=== PATIENT | male | born 1945 | race Two or more races ===

== ENCOUNTER 2019-04-27 11:34 | Outpatient (CLI) | payer OTHER ==
[~2019-04-27 11:34] MED LIST: ASA81 MG; ATACAND32 MG; JANUMET 50-5001 EACH; LIPITOR20 MG; NORVASC5 MG; TOPROL XL50 M1
== END 2019-04-27 11:43 | disposition home or self-care (01) ==
LOC: LAB 11:34
DX: E03.8 Other specified hypothyroidism (principal); D64.89 Other specified anemias; I10 Essential (primary) hypertension; E78.49 Other hyperlipidemia; R10.84 Generalized abdominal pain; Z79.01 Long term (current) use of anticoagulants; C18.9 Malignant neoplasm of colon, unspecified; D12.2 Benign neoplasm of ascending colon; E11.9 Type 2 diabetes mellitus without complications; I25.728 Atherosclerosis of autologous artery coronary artery bypass graft(s) with other forms of angina pectoris; Z82.49 Family history of ischemic heart disease and other diseases of the circulatory system; R19.5 Other fecal abnormalities

== ENCOUNTER 2019-05-03 10:08 | Outpatient (CLI) | payer OTHER | END 2019-05-03 14:34 | disposition home or self-care (01) | LOC: TOM 10:08 | DX: C18.9 Malignant neoplasm of colon, unspecified (principal) | CPT/HCPCS: 74177; Q9965 ==

== ENCOUNTER 2019-05-09 08:26 | Outpatient (CLI) | payer OTHER | END 2019-05-09 08:32 | disposition home or self-care (01) | LOC: NUCLEAR 08:26 | DX: I11.9 Hypertensive heart disease without heart failure (principal); I25.10 Atherosclerotic heart disease of native coronary artery without angina pectoris; I73.9 Peripheral vascular disease, unspecified; I87.2 Venous insufficiency (chronic) (peripheral) ==

== ENCOUNTER 2019-05-10 09:37 | Outpatient (CLI) | payer OTHER | END 2019-05-10 09:47 | disposition home or self-care (01) | LOC: NUCLEAR 09:37 | DX: I73.9 Peripheral vascular disease, unspecified (principal); I87.2 Venous insufficiency (chronic) (peripheral) ==

== ENCOUNTER 2019-05-22 12:24 | Inpatient (IN) | payer OTHER ==
[~2019-05-22] VITALS: Ht 177.8 cm; Wt 90.7 kg
[2019-06-19] MEDS ORDERED: INTESTINEX680 M1 PO (13:34)
[2019-06-19] MEDS ORDERED: OXYC1TAB9 PO (13:34)
== END 2019-06-19 13:56 | disposition home or self-care (01) | DRG 331 ==
LOC: SURG 06-07 09:15 → O/R 06-15 08:00 → SURH 06-15 08:00 → SURG 06-15 09:15 → SURH 06-15 13:12
PROVIDERS: ADMIT Surgery
PROC: 07TD4ZZ Resection of Aortic Lymphatic, Percutaneous Endoscopic Approach (ICD-10-PCS; 2019-06-15)
PROC: 4A12X4Z Monitoring of Cardiac Electrical Activity, External Approach (ICD-10-PCS; 2019-06-15)
PROC: 0DTF4ZZ Resection of Right Large Intestine, Percutaneous Endoscopic Approach (ICD-10-PCS; principal; 2019-06-15 12:00)
DX: D12.2 Benign neoplasm of ascending colon (principal); D12.3 Benign neoplasm of transverse colon; D12.5 Benign neoplasm of sigmoid colon; D37.4 Neoplasm of uncertain behavior of colon; K63.89 Other specified diseases of intestine; R59.0 Localized enlarged lymph nodes; E78.00 Pure hypercholesterolemia, unspecified; E11.9 Type 2 diabetes mellitus without complications; Z79.4 Long term (current) use of insulin; I11.9 Hypertensive heart disease without heart failure; I25.10 Atherosclerotic heart disease of native coronary artery without angina pectoris; F17.290 Nicotine dependence, other tobacco product, uncomplicated

== ENCOUNTER 2019-06-06 11:20 | Outpatient (CLI) | payer OTHER | END 2019-06-06 15:00 | disposition home or self-care (01) | LOC: LAB 11:20 | DX: D37.4 Neoplasm of uncertain behavior of colon (principal); D12.2 Benign neoplasm of ascending colon; D12.3 Benign neoplasm of transverse colon; D12.5 Benign neoplasm of sigmoid colon ==

== ENCOUNTER 2019-06-13 07:10 | Day surgery (SDC) | payer OTHER | END 2019-06-13 13:24 | disposition home or self-care (01) | LOC: AMB-ENDOS 07:10 | DX: D12.5 Benign neoplasm of sigmoid colon (principal) ==

== ENCOUNTER 2020-07-09 10:29 | Day surgery (SDC) | payer OTHER ==
[~2020-07-09 10:29] MED LIST changes: +INTESTINEX680 M1 PO; +OXYC1TAB9 PO
== END 2020-07-09 16:35 | disposition home or self-care (01) ==
LOC: AMB-ENDOS 10:29
PROVIDERS: ATTEND Surgery
DX: D12.8 Benign neoplasm of rectum (principal); K64.8 Other hemorrhoids; Z20.828 Contact with and (suspected) exposure to other viral communicable diseases

== ENCOUNTER 2020-07-18 13:49 | Outpatient (CLI) | payer OTHER | END 2020-07-18 14:03 | disposition home or self-care (01) | LOC: RAD 13:49 | PROVIDERS: ATTEND Physical Medicine & Rehabilitation | DX: M19.041 Primary osteoarthritis, right hand (principal) ==

== ENCOUNTER 2020-07-25 09:33 | Outpatient (CLI) | payer OTHER | END 2020-07-25 09:45 | disposition home or self-care (01) | LOC: NUCLEAR 09:33 | PROVIDERS: ATTEND Internal Medicine Cardiovascular Disease | DX: I73.9 Peripheral vascular disease, unspecified (principal); I87.2 Venous insufficiency (chronic) (peripheral) ==

== ENCOUNTER 2020-07-26 10:41 | Outpatient (CLI) | payer OTHER | END 2020-07-26 10:54 | disposition home or self-care (01) | LOC: NUCLEAR 10:41 | PROVIDERS: ATTEND Internal Medicine Cardiovascular Disease | DX: I73.9 Peripheral vascular disease, unspecified (principal); I87.2 Venous insufficiency (chronic) (peripheral) ==

== ENCOUNTER 2020-12-20 13:40 | Emergency (ER) | payer OTHER ==
[~2020-12-20] VITALS: Ht 177.8 cm; Wt 81.6 kg
[2020-12-20] MEDS ORDERED: ULTRAM50 MG PO (21:12)
[2020-12-20] MEDS ORDERED: TAMS0.4C PO (21:12)
== END 2020-12-20 22:45 | disposition home or self-care (01) ==
LOC: ER 13:40
DX: N20.1 Calculus of ureter (principal); R10.32 Left lower quadrant pain; R10.12 Left upper quadrant pain

== ENCOUNTER → 2021-01-01 13:21 | Outpatient (CLI) | payer OTHER ==
[~2021-01-01 13:21] MED LIST changes: +TAMS0.4C PO; +ULTRAM50 MG PO
== END | disposition home or self-care (01) ==
LOC: LAB 13:21
PROVIDERS: ATTEND Surgery
DX: N20.0 Calculus of kidney (principal); N20.1 Calculus of ureter; Z12.5 Encounter for screening for malignant neoplasm of prostate; N40.0 Benign prostatic hyperplasia without lower urinary tract symptoms

== ENCOUNTER 2021-01-01 13:51 | Outpatient (CLI) | payer OTHER | END 2021-01-01 14:06 | disposition home or self-care (01) | LOC: SONOGRAMA 13:51 → TOM 13:51 → SONOGRAMA 14:06 | PROVIDERS: ATTEND Surgery | DX: N20.1 Calculus of ureter (principal) ==

== ENCOUNTER 2023-01-26 09:08 | Outpatient (CLI) | payer OTHER | END 2023-01-26 15:01 | disposition home or self-care (01) | LOC: LAB 09:08 | DX: D64.9 Anemia, unspecified (principal); B34.9 Viral infection, unspecified; N39.0 Urinary tract infection, site not specified; E11.9 Type 2 diabetes mellitus without complications; E78.5 Hyperlipidemia, unspecified; E03.8 Other specified hypothyroidism; Z12.11 Encounter for screening for malignant neoplasm of colon; Z12.12 Encounter for screening for malignant neoplasm of rectum; R19.5 Other fecal abnormalities; N40.0 Benign prostatic hyperplasia without lower urinary tract symptoms; R39.12 Poor urinary stream; R39.15 Urgency of urination; R35.1 Nocturia; E55.9 Vitamin D deficiency, unspecified; M79.10 Myalgia, unspecified site; I10 Essential (primary) hypertension ==

== ENCOUNTER 2023-01-27 15:06 | Outpatient (CLI) | payer OTHER | END 2023-01-27 15:16 | disposition home or self-care (01) | LOC: LAB 15:06 | DX: B34.9 Viral infection, unspecified (principal); D64.9 Anemia, unspecified; N39.0 Urinary tract infection, site not specified; E78.5 Hyperlipidemia, unspecified; E03.8 Other specified hypothyroidism; E21.3 Hyperparathyroidism, unspecified; Z12.11 Encounter for screening for malignant neoplasm of colon; Z12.12 Encounter for screening for malignant neoplasm of rectum; R19.5 Other fecal abnormalities; N40.0 Benign prostatic hyperplasia without lower urinary tract symptoms; R39.12 Poor urinary stream; R39.15 Urgency of urination; R35.1 Nocturia; R73.9 Hyperglycemia, unspecified; E55.9 Vitamin D deficiency, unspecified; M79.18 Myalgia, other site ==